=== PATIENT | male | born 1980 | race Hispanic/Latino ===

== ENCOUNTER 2021-04-27 12:54 | Emergency (ER) | payer OTHER ==
[~2021-04-27] VITALS: Ht 200.7 cm; Wt 131.5 kg
[2021-04-27] MEDS ORDERED: DICYCLOMINE 20MG (10MG/ML) AMP IM STA (13:15)
[2021-04-27 13:23] LABS: APPEARANCE,URINE Cloudy (CLEAR); BILIRUBIN,URINE Negative (NEGATIVE); COLOR,URINE Dark Yellow (YELLOW); GLUCOSE, URINE (UA) Negative (NEGATIVE); KETONES,URINE Trace mg/dL (NEGATIVE); LEUKOCYTE ESTERASE ,URINE Trace (NEGATIVE); NITRATE,URINE Negative (NEGATIVE); OCCULT BLOOD,URINE Nonhemolyzed Trace (NEGATIVE); PH,URINE 7.5 (5.0-8.0); PROTEIN,URINE Trace mg/dL (NEGATIVE)
[2021-04-27] MEDS ORDERED: LACTATED RINGERS 1000ML 1,000 ML IV ONE (13:30)
[2021-04-27] MEDS ORDERED: ONDANSETRON 4MG INJ IVP ONE (13:30)
[2021-04-27] MEDS ORDERED: KETOROLAC 30MG VIAL (30MG/ML) IV ONE (13:30)
[2021-04-27 13:38] LABS: BASOPHILS % (AUTO) 0.4 % (0.0-5.0); EOSINOPHILS % (AUTO) 0.7 % (0.0-8.0); HEMATOCRIT 42.6 % (42-54); LYMPHOCYTES % (AUTO) 14.8 % (21.0-51.0); MEAN CORPUSCULAR HEMOGLOBIN 27.3 pg (27.0-33.0); MEAN CORPUSCULAR VOLUME 80.2 fL (79-99); MONOCYTES % (AUTO) 6.3 % (3.0-13.0); NEUTROPHILS % (AUTO) 77.5 % (40.0-77.0); PLATELET COUNT (AUTO) 201 K/uL (130-400); RED BLOOD CELL COUNT(AUTO) 5.31 MIL/uL (4.50-6.20); RED CELL DISTRIBUTION WIDTH 13.1 % (11.0-15.5); WHITE BLOOD COUNT (AUTO) 7.6 K/uL (4.8-10.8)
[2021-04-27 13:48] LABS: BACTERIA,URINE Rare /HPF (None Seen); MUCUS,URINE Few LPF (None Seen); RBC,URINE 0-1 /HPF (0-1); SQUAMOUS EPITHELIAL CELL,UR Rare /HPF (0-2); WBC,URINE 0-1 /HPF (0-1)
[2021-04-27 13:53] LABS: ALBUMIN 3.8 g/dL (3.5-5.0); BILIRUBIN,TOTAL 0.9 mg/dL (0.2-1.0); CREATININE 1.5 mg/dL (0.5-1.5); POTASSIUM 3.3 mmol/L (3.5-5.1); TOTAL PROTEIN, SERUM 6.8 g/dL (6.0-8.3)
[2021-04-27 13:56] VITALS: BP 134/77
[2021-04-27 14:13] LABS: AMPHET/METH SCREEN,URINE NEGATIVE (NEGATIVE); BARBITURATE SCREEN, URINE NEGATIVE (NEGATIVE); BENZODIAZEPINES SCREEN,URINE NEGATIVE (NEGATIVE); CANNABINOID SCREEN,URINE POSITIVE (NEGATIVE); COCAINE SCREEN,URINE POSITIVE (NEGATIVE); OPIATE SCREEN,URINE NEGATIVE (NEGATIVE); PHENCYCLIDINE SCREEN,URINE NEGATIVE (NEGATIVE)
[2021-04-27] MEDS ORDERED: DICY20TA2 PO (14:35)
[2021-04-27] MEDS ORDERED: ONDA4TAB10 PO (14:35)
[2021-04-27 14:54] VITALS: BP 151/86
== END 2021-04-27 15:00 | disposition home or self-care (01) ==
LOC: EDH 12:54
DX: A08.4 Viral intestinal infection, unspecified (principal); F19.10 Other psychoactive substance abuse, uncomplicated
CPT/HCPCS: 36415; 80053; 80305; 81001; 82150; 83690; 85025; 96361; 96372; 96374; 96375; 99284; J0500; J1885; J2405; J7120